=== PATIENT | female | born 1985 | race Caucasian/White ===

== ENCOUNTER 2017-09-19 14:36 | Emergency (ER) | payer BC, OTHER ==
[2017-09-19] MEDS ORDERED: 0.9 % SODIUM CHLORIDE 1,000 ML BAG IV ONE (15:04)
--- NOTE | 2017-09-19 15:04 | Emergency Department Record ---
History of Present Illness - General Chief Complaint: Chest Pain Stated Complaint: chest pain Time Seen by Provider: 09/19/17 14:53 Source: Patient Mode of Arrival: Wheelchair Limitations: No limitations - History of Present Illness Initial Comments: 31 yo female presents from the [facility] with feeling of not being about to take a full breath. This has been ongoing for a couple weeks. She is normally healthy. No chronic medical conditions. No fever. No cough. She states it is not painful. No calf pain or edema. She has been working out recently and has sore muscles. No nausea, vomiting or diarrhea. No family history of SCD, PE, premature CAD. MD Complaint: Chest pain Onset/Timin -: Days(s) Onset: Other Pain Radiation: None Severity: Mild Quality: Other Consistency: Intermittent Improves With: Nothing Worsens With: Nothing, Other (No effect with exertion, she is able to exercise) Context: Other (No medications) Anginal Symptoms: Other Other Symptoms: Other Treatments Prior to Arrival: None - Related Data Allergies Allergy/AdvReac Type Severity Reaction Status Date / Time Penicillins Allergy HIVES Verified 09/19/17 14:47 Travel Screening - Travel/Exposure Within Last 30 Days Have you traveled within the last 30 days?: No - Travel/Exposure Within Last Year Have you traveled outside the [place] in the last year?: No - Additonal Travel Details Have you been exposed to anyone with a communicable illness?: No - Travel Symptoms Symptom Screening: None Review of Systems Constitutional: Denies: Chills, Fever, Malaise, Weakness Eyes: Denies: Eye discharge, Eye pain ENT: Denies: Congestion, Throat pain Respiratory: Denies: Cough, Dyspnea, Hemoptysis, Stridor, Wheezes Cardiovascular: Reports: Palpitations. Denies: Chest pain, Dyspnea on exertion , Edema, Paroxysmal nocturnal dyspnea, Syncope Endocrine: Denies: Fatigue, Polydipsia, Polyuria Gastrointestinal: Denies: Abdominal pain, Diarrhea, Nausea, Vomiting Genitourinary: Denies: Dysuria, Urgency Musculoskeletal: Denies: Arthralgia, Back pain, Myalgia Skin: Denies: Bruising, Change in color, Rash Neurological: Denies: Numbness, Weakness Psychiatric: Denies: Anxiety Hematological/Lymphatic: Denies: Blood Clots, Easy bleeding, Easy bruising Past Medical History - SOCIAL HISTORY Smoking Status: Never smoker Alcohol Use: None Drug Use: None - RESPIRATORY Hx Respiratory Disorders: No - CARDIOVASCULAR Hx Cardio Disorders: No - NEURO Hx Neuro Disorders: No - GI Hx GI Disorders: No - Hx Genitourinary Disorders: No - ENDOCRINE Hx Endocrine Disorders: No - MUSCULOSKELETAL Hx Musculoskeletal Disorders: No - PSYCH Hx Psych Problems: No - HEMATOLOGY/ONCOLOGY Hx Hematology/Oncology Disorders: No Family Medical History Any Significant Family History?: No Physical Exam - General General Appearance: Alert, Oriented x3, Cooperative, No acute distress Limitations: No limitations - Head Head exam: Normal inspection - Eye Eye exam: Normal appearance. negative: Conjunctival injection, Scleral icterus - ENT ENT exam: Normal exam, Mucous membranes moist Ear exam: Normal external inspection Nasal Exam: Normal inspection Mouth exam: Normal external inspection - Neck Neck exam: Normal inspection - Respiratory Respiratory exam: Normal lung sounds bilaterally. negative: Respiratory distress - Cardiovascular Cardiovascular Exam: Normal rhythm, Normal heart sounds, Tachycardia. negative : Regular rate Peripheral Pulses: 2+: Radial (R), Radial (L) - GI/Abdominal GI/Abdominal exam: Soft. negative: Tenderness - Rectal Rectal exam: Deferred - exam: Deferred - Extremities Extremities exam: Normal inspection, Full ROM, Normal capillary refill. negative: Pedal edema, Tenderness - Back Back exam: Denies: CVA tenderness (R), CVA tenderness (L) - Neurological Neurological exam: Alert, Oriented X3 - Psychiatric Psychiatric exam: Normal affect, Normal mood. negative: Agitated, Anxious - Skin Skin exam: Dry, Intact, Normal color, Warm Course Vital Signs 09/19/17 14:43 Temperature 99.0 F Pulse Rate 130 H Respiratory 20 Rate Blood Pressure 126/83 Pulse Ox 100 - Reevaluation(s) Reevaluation #1: EKG #1: 1442 Rate: 122 Rhythm: Sinus tachycardia Dilley: Normal Intervals: Normal ST segments: Borderline low voltage, No acute changes except for rate Prior: None 09/19/17 15:05 No traditional risk factors for CAD, PE, DVT. She is normally healthy and active. 09/19/17 15:46 The D-dimer is negative at 0.22 Normal Troponin 09/19/17 16:02 The K is low at 3.2 HR much improved to 98 (She states heart racing is not usual if nervous) 09/19/17 16:03 The CRP is normal 09/19/17 16:35 Relaxed. HR 90 bpm. 09/19/17 16:36 The chest XR was read as normal/negative 09/19/17 16:38 Medical Decision Making - Lab Data Result diagrams: 09/19/17 14:42 09/19/17 14:42 Disposition Disposition: Discharge Clinical Impression: Palpitations Disposition: Home, Self-Care Condition: (1) Good Instructions: Heart Palpitations (ED) Additional Instructions: Rest and stay well hydrated Return if worse, cough, short of breath, fever or any new concerns Your blood sugar was mildly elevated at 159 today You will need to have this rechecked with your doctor Referrals: RASHEL EVANGELISTA M.D. [MEDICAL DOCTOR] - [facility] [Provider Group] Forms: Patient Portal Access Time of Disposition: 16:37 Quality - Quality Measures Quality Measures: N/A - Blood Pressure Screening Does Patient Have Any of the Following: No Blood Pressure Classification: Pre-Hypertensive BP Reading Systolic Measurement: 113 Diastolic Measurement: 86 Screening for High Blood Pressure: < Pre-Hypertensive BP, F/U Documented > [ [id number]] Pre-Hypertensive Follow-up Interventions: Referral to alternative/primary care provider.
[2017-09-19 15:16] LABS: BASO % 0.2 % (0-6); EOS % 1.2 % (0-6); GRAN % 70.9 % (47-80); HEMATOCRIT 36.4 % (35.0-47.0); HEMOGLOBIN 11.7 gm/dl (11.6-16.0); LYMPH % 20.6 % (16-45); MEAN CELL VOLUME 92.4 fl (81-97); MEAN CORPUSCULAR HEMOGLOBIN 29.7 pg (27-33); MEAN CORPUSCULAR HGB CONC 32.1 g/dl (32-36); MEAN PLATELET VOLUME 11.3 fl (7.4-10.4); MONO % 7.1 % (0-9); PLATELET COUNT 217 K/uL (130-400); RED BLOOD COUNT 3.94 M/uL (3.80-5.40); RED CELL DISTRIBUTION WIDTH 13.3 % (11.5-14.5); WHITE BLOOD COUNT W/O DIFF 8.2 K/uL (4.2-12.2)
[2017-09-19 15:39] LABS: BLOOD UREA NITROGEN 10 mg/dL (6-20); CREATININE 0.8 mg/dL (0.5-0.9); EST GLOMERULAR FILTRATION RATE > 60 mL/min
[2017-09-19 15:40] LABS: TOTAL PROTEIN 7.3 g/dL (6.6-8.7)
[2017-09-19 15:42] LABS: GLUCOSE,RANDOM 159 mg/dL (74-109)
[2017-09-19 15:44] LABS: ALT/SGPT 12 U/L (<33); AST/SGOT 18 U/L (10.0-35.0)
[2017-09-19 15:45] LABS: ALB/GLOB RATIO 1.8 (1.1-1.8); ALBUMIN 4.7 g/dL (4.0-5.0); ALKALINE PHOSPHATASE 55 U/L (35-104)
[2017-09-19 15:50] LABS: C-REACTIVE PROTEIN < 0.05 mg/dL (<0.5)
[2017-09-19 15:55] LABS: THYROID STIMULATING HORMONE 1.77 uIU/mL (0.270-4.20)
[2017-09-19] MEDS ORDERED: POTASSIUM CHLORIDE 20 MEQ TABLET PO ONE (16:01)
--- NOTE | 2017-09-21 15:13 | RADIOLOGY REPORT ---
EXAM: CHEST, TWO VIEWS HISTORY: PALPITATIONS, SHORTNESS OF BREATH. TECHNIQUE: PA and lateral views of the chest were obtained. Comparison: None. FINDINGS: The heart size is normal. No acute infiltrate identified. No pleural effusion or pneumothorax evident. IMPRESSION: NEGATIVE CHEST EXAMINATION. JOB NUMBER: [id number] MTDD
== END 2017-09-19 16:53 | disposition home or self-care (01) ==
LOC: ER 14:36
DX: R00.2 Palpitations (principal); R07.89 Other chest pain; R20.2 Paresthesia of skin
CPT/HCPCS: 71046; 80053; 84443; 84484; 84703; 85025; 85379; 85651; 86140; 93005; 93010; 96360; 99284; J7030

== ENCOUNTER 2019-04-18 09:39 | Day surgery (SDC) | payer OTHER ==
[2019-04-18] MEDS ORDERED: LIDOCAINE 2% MDV (20MG/ML) 20ML VIAL IV ONE (09:40)
[2019-04-18] MEDS ORDERED: PROPOFOL 10 MG/ML VIAL IV ONE (09:40)
--- NOTE | 2019-04-19 06:50 | Operative Note ---
OPERATION: ESOPHAGOGASTRODUODENOSCOPY with biopsy. PREOPERATIVE DIAGNOSIS: Bloating and hives. POSTOPERATIVE DIAGNOSIS: Normal upper endoscopy, rule out occult H pylori. PROCEDURE: After informed consent was obtained from the patient, she was placed in the left lateral decubitus position in the endoscopy suite, sedated and monitored by the department of anesthesia. A well-lubricated [id number] gastroscope was placed in the posterior oropharynx under direct visualization and passed to the proximal esophagus. The endoscope was advanced through the proximal, mid, and distal esophagus. The esophagus and GE junction were unremarkable. The gastric body, antrum, and pylorus were unrevealing as well. The duodenal bulb and sweep appeared normal. There were no changes that would suggest the possibility of celiac sprue. The villi appeared intact. J-turn views of the proximal stomach revealed no abnormalities. The endoscope was straightened. Random gastric biopsies were obtained to rule out occult H pylori. The stomach was deflated and the endoscope was removed from the patient. No new findings or abnormalities were noted. RECOMMENDATIONS: I would suggest the patient continue her current medical program. We will await the results of biopsies in the interim. As always, thank you for allowing me to participate in the healthcare of your patients. SHY
== END 2019-04-18 12:10 | disposition home or self-care (01) ==
LOC: HOP 09:39
PROVIDERS: ATTEND Internal Medicine Gastroenterology
DX: R14.0 Abdominal distension (gaseous) (principal); K29.50 Unspecified chronic gastritis without bleeding; L50.9 Urticaria, unspecified
CPT/HCPCS: 81025